=== PATIENT | male | born 1970 | race Caucasian/White ===

== ENCOUNTER → 2018-03-24 12:52 | Outpatient (CLI) | payer BC, SELFPAY ==
--- NOTE | 2018-03-24 13:13 | XR_ITS ---
EXAM: XR lumbar spine min 4V HISTORY: Low back pain ITS.REASON: RADICULOPATHY DOWN RT LIMB ORDERING PHYSICIAN: Stephani Hobbs PATIENT AGE: 48 years COMPARISON: 04/08/2009 FINDINGS: There is straightening of the lumbar lordosis. There is mild degenerative disc disease at T12-L1 and L1-L2 with small anterior osteophytes. No fracture or dislocation. The SI joints have an unremarkable appearance. There is minimal lumbar curvature convex right. IMPRESSION: Mild lumbar spondylosis with mild degenerative disc disease at T12-L1 and L1-L2 with straightening of lordosis and minimal lumbar curvature convex right
--- NOTE | 2018-03-24 13:13 | XR_ITS ---
XR hip RT 2-3V w/pelvis HISTORY: Right hip pain and no known injury ITS.REASON: RT HIP PAIN ORDERING PHYSICIAN: Stephani Hobbs PATIENT AGE: 48 years COMPARISON: None FINDINGS: There is slight decrease in the hip joint space superiorly which may be seen with mild osteoarthritic change. No fracture or dislocation. No lytic or blastic change. No significant osteophytes. IMPRESSION: Slight decrease in the hip joint space superiorly which may be seen with early osteoarthritis
== END ==
PROVIDERS: PCP Internal Medicine Adolescent Medicine; Visit Provider Nurse Practitioner Family
DX: M25.551 Pain in right hip (principal); M54.10 Radiculopathy, site unspecified
CPT/HCPCS: 72110; 73502

== ENCOUNTER 2018-05-03 08:30 | Outpatient (RCR) | payer BC, SELFPAY ==
--- NOTE | 2018-04-19 08:44 | [facility]H.PTOPEV ---
PT Outpatient Evaluation Rehab PT Outpatient Evaluation Start: 04/19/18 08:32 Freq: Status: Active Protocol: Document 04/19/18 08:33 VILLA (Rec: 04/19/18 08:44 VILLA [id number]) Electronically Signed By Alex Posada, PT 04/19/18 08:33 Outpatient Therapy Subjective History Subjective History Pt reports insidious onset R sided LBP beginning ~3 wks ago , and progressing to radicular pain from R hip down to R foot at its worst. Pt reports improvement w/steroids, however, still has significant pain w/driving. 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 Chief Complaint Pain Stiff Paresthesia Symptom Type Ache Sharp Dull Shooting Symptoms Relieved By Prescription Meds Symptoms Aggravated By Sitting Bending/Stooping Physical Activity Lifting Prior Functional Limitations None Current Functional Limitations Lifting Driving Sitting Bending/Stooping Symptom Description Constant but Variable Level of pain today (0-10) 3 Pain scale - at its best (0-10) 2 Pain scale - at its worst (0-10) 8 Lumbopelvic Eval Posture Thoracic Spine Posture Standing Position Neutral Lumbar Spine Posture Standing Position Flattened Assistive device Assistive Devices None / NA Gait Observation General Gait Pattern Observation Antalgic Gait Palapation tenderness right lumbar spinal tenderness Yes: 2/4 paraspinal tenderness Yes: 3/4 buttock tenderness Yes: 3/4 Lumbar/Sacral Palpation Findings Tenderness Muscle Guarding Accessory Movement T-spine Vertebrae Accessory Movements Central P/A [place] that Elicit Symptoms L4 right L5 right Range of Motion Lumbar Spine Active Flexion Range of 0-40 Motion (degrees) Lumbar Spine Active Extension Range of 0-20 Motion (degrees) Left Lumbar Spine Lateral Flexion Active 0-20 Range of Motion (degrees) Right Lumbar Spine Lateral Flexion 0-25 Active Range of Motion (degrees) Lumbar Spine ROM Limitations Pain Manual Muscle Test Left Knee Exten
== END 2018-05-03 08:31 | disposition home or self-care (01) ==
LOC: PT 08:30
PROVIDERS: Family Provider Internal Medicine Adolescent Medicine; PCP Internal Medicine Adolescent Medicine; Visit Provider Nurse Practitioner Family
DX: M54.10 Radiculopathy, site unspecified (principal); M54.5 Low back pain
CPT/HCPCS: 97010; 97012; 97014; 97035; 97110; 97163; G0283

== ENCOUNTER → 2020-12-03 09:18 | Outpatient (CLI) | payer BC, SELFPAY ==
--- NOTE | 2020-12-03 09:29 | XR_ITS ---
PROCEDURE: XR KNEE LT 3V CLINICAL INDICATION: LT KNEE PAIN,FALL Injury with pain COMPARISON: No exams were available for comparison FINDINGS: No fracture or dislocation. No lytic or blastic change. There is normal mineralization. The joint spaces are well-preserved. No significant degenerative/arthritic changes. No erosive changes evident. Other findings:Minimal popliteal artery calcification noted IMPRESSION: No acute findings. Dictated by: Immanuel Jc MD 12/03/2020 10:00 Immanuel Jc MD in [place] 12/03/2020 10:00
== END ==
PROVIDERS: PCP Nurse Practitioner Family; Visit Provider Nurse Practitioner Family
DX: M25.562 Pain in left knee (principal); W10.8XXA Fall (on) (from) other stairs and steps, initial encounter
CPT/HCPCS: 73562

== ENCOUNTER → 2021-06-25 08:53 | Outpatient (CLI) | payer BC, SELFPAY ==
[2021-06-25 09:15] LABS: White Blood Count 6.8 K/mm3 (4.8-10.8)
[2021-06-25 09:16] LABS: Basophils # 0.1 K/mm3 (0-0.2); Basophils % 1.1 % (0.1-2.0); Eosinophils # 0.1 K/mm3 (0.0-0.4); Hematocrit 44.1 % (42.0-52.0); Lymphocytes # 1.6 K/mm3 (0.7-4.5); Lymphocytes % 23.8 % (10-50); Mean Corpuscular HGB Conc 33.9 g/dL (31.8-35.4); Mean Corpuscular Volume 97.2 fl (80-94); Mean Platelet Volume 7.4 fl (7.4-10.4); Monocytes # 0.3 K/mm3 (0.1-1.0); Monocytes % 4.5 % (1.7-9.3); Neutrophils # 4.7 K/mm3 (1.8-7.8); Neutrophils % 68.6 % (37.0-80.0); Platelet Count 231 K/mm3 (142-424); Red Blood Count 4.54 M/mm3 (4.60-6.20); Red Cell Distribution Width 12.1 % (11.5-17.5)
[2021-06-25 10:19] LABS: Alanine Aminotransferase 46 U/L (12-78); Albumin Level 4.6 g/dl (3.5-5.0); Albumin/Globulin Ratio 1.6 (1.1-1.8); Alkaline Phosphatase 69 U/L (38-126); Anion Gap 14.8 mEq/L (5-15); Aspartate Amino Transferase 44 U/L (17-59); Bilirubin,Total 0.8 mg/dl (0.2-1.3); Blood Urea Nitrogen 11 mg/dl (9-20); Calcium 9.2 mg/dl (8.4-10.2); Carbon Dioxide 28 mmol/L (22.0-30.0); Chloride 101 mmol/L (98-107); Chol/HDL Ratio 6.5 (1-3.5); Cholesterol 242 mg/dl (140-200); Estimated Glomerular Filt Rate 143 ml/min (>60); GFR (African American) 173 ML/MIN (>60); Globulin 2.8 g/dL (1.3-3.2); Glucose 116 mg/dl (74-100); HDL Cholesterol 37 mg/dl (40-60); Potassium 4.8 mmoL/L (3.5-5.1); Sodium 139 mmol/L (136-145); Total Protein,Serum 7.4 g/dl (6.3-8.2)
[2021-06-25 10:30] LABS: Direct LDL Cholesterol 109.23 mg/dL (100-129); Triglycerides 659 mg/dl (30-150)
[2021-06-25 10:50] LABS: Thyroid Stimulating Hormone 1.94 uIU/mL (0.465-4.68)
[2021-06-25 11:09] LABS: Vitamin B12 639 pg/mL (239-931)
[2021-06-27 12:38] LABS: Hemoglobin A1C 5.3 % (4.0-6.0)
== END ==
PROVIDERS: Visit Provider Nurse Practitioner Family
DX: R00.2 Palpitations (principal); I10 Essential (primary) hypertension; R73.9 Hyperglycemia, unspecified; R53.81 Other malaise
CPT/HCPCS: 36415; 80053; 80061; 82607; 83036; 84443; 85025

== ENCOUNTER → 2021-07-21 13:13 | Outpatient (CLI) | payer BC, SELFPAY | PROVIDERS: PCP Internal Medicine Adolescent Medicine; Visit Provider Nurse Practitioner Family | DX: G47.33 Obstructive sleep apnea (adult) (pediatric) (principal); R06.83 Snoring; R40.0 Somnolence | CPT/HCPCS: G0399 ==